=== PATIENT | male | born 1965 | race Caucasian/White ===

== ENCOUNTER 2022-06-08 10:57 | Emergency (ER) | payer OTHER, SELFPAY ==
[2022-06-08 11:21] VITALS: BP 121/79; PULSE 83; RESP 18; TEMP 36.3; O2SAT 100
--- NOTE | 2022-06-08 11:49 | ED.GENADULT ---
HPI - General Adult General Chief complaint: Dental/Oral Stated complaint: toothache Source: patient Mode of arrival: ambulatory Limitations: no limitations History of Present Illness HPI narrative: Is a 56-year-old that comes in complaining of dental pain. Patient states that a while ago his teeth being kicked out he works with horses and he was cued patient states that the doctor there ordered him amoxicillin and is given diarrhea for 4 days. Some patients that taking the antibiotic for now who gumline has started to swell it is very painful to touch. Patient denies any fever nausea and or vomiting Related Data Home Medications Medication Instructions Recorded Confirmed clonazepam 2 mg tablet 1 mg QID 06/08/22 06/08/22 clonidine HCl 0.1 mg tablet 0.1 mg BID 06/08/22 06/08/22 ezetimibe 10 mg tablet 10 mg DAILY 06/08/22 06/08/22 gabapentin 300 mg capsule 300 mg TID 06/08/22 06/08/22 hydrocodone 5 mg-acetaminophen 325 1 tablet DIRECTED 06/08/22 06/08/22 mg tablet levothyroxine 200 mcg tablet 200 mcg DAILY 06/08/22 06/08/22 lisinopril 40 mg tablet 40 mg DAILY 06/08/22 06/08/22 omeprazole 20 mg capsule,delayed 20 mg DAILY 06/08/22 06/08/22 release rosuvastatin 20 mg tablet 20 mg DAILY 06/08/22 06/08/22 tamsulosin 0.4 mg capsule 0.4 mg PO DAILY 06/08/22 06/08/22 Allergies Allergy/AdvReac Type Severity Reaction Status Date / Time amoxicillin AdvReac Diarrhea Verified 06/08/22 11:47 atorvastatin [From Lipitor] AdvReac Other Verified 06/08/22 11:47 Review of Systems Review of Systems: Dental pain All systems reviewed & are unremarkable except as noted in HPI and below PMFSH Comments At time as signature, I have reviewed and agree with nursing past medical, social, surgical and family history. Please see nursing chart for further information. There is no relevant family history pertinent to the presenting complaint. Exam Narrative: GENERAL:Well-appearing, dishevelled HEAD:Normocephalic,. EYES: PERRLA and EOMI. ENT: Nares clear, no rhinorrhea or epistaxis. Mucous membranes moist. Multiple dental caries missing teethAnd broken teeth CHEST: Ease of rise and fall of chest wall No respiratory distress. HEART: Regular rate and rhythm. Normal peripheral pulses. EXTREMITIES: Normal range of motion. No edema. NEURO: No focal deficits. Alert and oriented x3. Course Course Level of Care: Express Care Visit Vital Signs Vital signs: Vital Signs Temperature 97.3 F L 06/08/22 11:21 Pulse Rate 83 06/08/22 11:21 Respiratory Rate 18 06/08/22 11:21 Blood Pressure 121/79 06/08/22 11:21 Pulse Oximetry 100 06/08/22 11:21 Oxygen Delivery Room Air 06/08/22 11:21 Temperature 97.3 F L 06/08/22 11:21 Pulse Rate 83 06/08/22 11:21 Respiratory Rate 18 06/08/22 11:21 Blood Pressure 121/79 06/08/22 11:21 Pulse Oximetry 100 06/08/22 11:21 Oxygen Delivery Room Air 06/08/22 11:21 Medical Decision Making Vital Signs Vital Signs: Vital Signs Temperature 97.3 F L 06/08/22 11:21 Pulse Rate 83 06/08/22 11:21 Respiratory Rate 18 06/08/22 11:21 Blood Pressure 121/79 06/08/22 11:21 Pulse Oximetry 100 06/08/22 11:21 Oxygen Delivery Room Air 06/08/22 11:21 Temperature 97.3 F L 06/08/22 11:21 Pulse Rate 83 06/08/22 11:21 Respiratory Rate 18 06/08/22 11:21 Blood Pressure 121/79 06/08/22 11:21 Pulse Oximetry 100 06/08/22 11:21 Oxygen Delivery Room Air 06/08/22 11:21 Discharge Plan Discharge Clinical Impression: Fracture of tooth, Abscess, dental Patient Disposition: Home, Self-Care Condition: Stable Instructions: Antibiotic Form, Dental Abscess (ED), Acute Dental Trauma (ED) Additional Instructions: Antibiotic as directed Avoid temperature extremes May apply heat or ice to the face Gentle brushing and flossing Alternate tylenol and ibuprofen as needed for pain Follow-up with the dentist as soon as possible--see the list provide
== END 2022-06-08 11:58 | disposition home or self-care (01) ==
PROVIDERS: Emergency Provider Nurse Practitioner Family; PCP Family Medicine
DX: S02.5XXA Fracture of tooth (traumatic), initial encounter for closed fracture (principal); X58.XXXA Exposure to other specified factors, initial encounter; K04.7 Periapical abscess without sinus; E78.00 Pure hypercholesterolemia, unspecified; I10 Essential (primary) hypertension; N40.0 Benign prostatic hyperplasia without lower urinary tract symptoms; E03.9 Hypothyroidism, unspecified; F41.9 Anxiety disorder, unspecified
CPT/HCPCS: 99213; G0463